=== PATIENT | female | born 1995 | race Caucasian/White ===

== ENCOUNTER 2021-11-07 13:50 | Emergency (ER) | payer OTHER ==
[2021-11-07 13:58] VITALS: BP 130/78
--- NOTE | 2021-11-07 14:09 | ED Physician Documentation ---
History of Present Illness - Stated complaint Stated Complaint: LT TOE SURGERY COMPLICATIONS - Chief complaint Chief Complaint: Wound - Additonal information Additional information: 26-year-old female presents emergency department for evaluation of acute left foot bleeding. She had a bunionectomy about 1 month ago. She did go to her decay control operator office this afternoon and had screws removed. The office visit was uneventful but when she walked into her home the site where the screws were removed began to bleed. She called the decay control operator and he advised her to come to the ER. Review of Systems Constitutional: denies: Fever, Chills Eyes: reports: Reviewed and negative Ears: reports: Reviewed and negative Cardiac: reports: Reviewed and negative Respiratory: reports: Reviewed and negative GI: reports: Reviewed and negative : reports: Reviewed and negative Skin: reports: Other (Minor bleeding on the dorsum of the left foot at the MCP joint of the great toe where screws were recently removed) Musculoskeletal: reports: Extremity pain Neurologic: reports: Reviewed and negative PD PAST MEDICAL HISTORY - Allergies Allergies/Adverse Reactions: Allergies Allergy/AdvReac Type Severity Reaction Status Date / Time cefdinir Allergy Hives Verified 11/07/21 13:55 PD ED PE EXPANDED - General General: Alert, No acute distress - Extremities Extremities: Left foot (Scant bleeding on the dorsum of the left foot at MCP joint where screws were removed today. Small amount of bruising and hematoma noted. Distal sensation intact. 2+ DP pulse.) Results - Vitals Vitals: Vital Signs - 24 hr 11/07/21 13:55 Temperature 36.5 C Heart Rate 85 Respiratory 16 Rate Blood Pressure 130/78 O2 Saturation 97 Oxygen O2 Source Room air - Rads (name of study) left foot Radiology: Final report received (Distal first digit soft tissue edema. No underlying osseous abnormality) PD MEDICAL DECISION MAKING - ED course Complexity details: d/w patient, d/w family, d/w market intelligence consultant (Mikki RHOADES) ED course: 26-year-old female presents emergency department for evaluation of bleeding at the site where screws were removed from her bunionectomy surgery 1 month ago. She was seen at the podiatry office this morning. She was walking normally until she noted the bleeding thus she presents to the ER. When the dressing was taken down I do note Steri-Strips directly over where the screws were in place but no active bleeding. X-ray shows some soft tissue edema but no new fra ctures. This case was discussed briefly with the decay control operator who did the surgery Dr. Kaye who agrees that simply changing the dressing and nonweightbearing for 2 to 3 days should be sufficient. Patient is scheduled follow-up with him on Wednesday. Otherwise routine wound care and emergent return precautions discussed. Departure - Departure Disposition: Home, Self Care Clinical Impression: Post-op bleeding Qualifiers: Surgical complication system/body Area: musculoskeletal system Procedure type: non-musculoskeletal Qualified Code(s): M96.831 - Postprocedural hemorrhage of a musculoskeletal structure following other procedure Condition: Stable Record reviewed to determine appropriate education?: Yes Comments: Brent you are seen today for evaluation of bleeding at the site where your screws were removed from your bunionectomy. At the time of your here in the emergency department it looks like the bleeding has stopped. I suspect that when you are walking normally you simply had some bleeding as the screw sites have not fully healed. I would recommend that you be nonweightbearing on this left foot for the next 2 to 3 days to allow that site to heal. You can expect that you will have some bruising in the area of the toe. I did discuss this case briefly with Dr. Kaye who would recommend the same. Return for any fevers severe pain red streaking in your foot or leg. Otherwise wound care as directed from your podiatry office.
--- NOTE | 2021-11-07 14:33 | XRAY Report ---
PROCEDURE: Foot 2 View LT INDICATIONS: bleeding after screw removalfrom bunion surgery TECHNIQUE: 3 views of the foot were acquired. COMPARISON: None FINDINGS: Bones: No fractures or dislocations. No suspicious bony lesions. Soft tissues: No tibiotalar joint effusion. Achilles tendon appears normal. Distal first digit soft tissue edema. IMPRESSION: Distal first digit soft tissue edema. No underlying osseous abnormality. Reviewed by: Kandice Peace MD on 11/07/2021 2:32 PM PDT Approved by: Kandice Peace MD on 11/07/2021 2:32 PM PDT Station ID: [id number]
== END 2021-11-07 15:01 | disposition home or self-care (01) ==
LOC: ED 13:50
DX: M96.831 Postprocedural hemorrhage of a musculoskeletal structure following other procedure (principal)
CPT/HCPCS: 99282; 99283